=== PATIENT | male | born 1940 | race Caucasian/White ===

== ENCOUNTER 2016-10-08 18:01 | Inpatient (IN) | payer MEDICARE, OTHER ==
[~2016-10-08] VITALS: Ht 188 cm; Wt 91.9 kg
[2016-10-08] MEDS ORDERED: METHYLPRED SOD SUCC 125 MG/2 ML VIAL ONE (18:33)
[2016-10-08] MEDS ORDERED: DUONEB INH ONE ×3 (18:37)
[2016-10-08] MEDS ORDERED: CEFTRIAXONE 1 GM VIAL ONE (19:19)
[2016-10-08] MEDS ORDERED: AZITHROMYCIN 250 MG TAB ONE (19:19)
[2016-10-08] MEDS ORDERED: SODIUM CHLORIDE 0.9% 100 ML IV ONE (19:21)
[2016-10-08] MEDS ORDERED: NEB-ALBUTEROL 2.5 MG/3 ML INH PRN (20:10)
[2016-10-08] MEDS ORDERED: SALINE FLUSH 10 ML FLUSH PRN (20:20)
[2016-10-08] MEDS ORDERED: ACETAMINOPHEN 325 MG TAB PO PRN (20:20)
[2016-10-08] MEDS ORDERED: BISACODYL 10 MG SUPP RECTAL PRN (20:20)
[2016-10-08 21:59] VITALS: BP_SYST 120; BP_SYST 134; RESP 20; TEMP 98.2
[2016-10-08 22:00] VITALS: Ht 188 cm; Wt 91.9 kg
[2016-10-08] MEDS: MONTELUKAST 10 MG TAB PO SCH (23:22)
[2016-10-08] MEDS: GUAIFENESIN ER 600 MG TABCR PO SCH (23:23)
[2016-10-08] MEDS: Atorvastatin 10 MG TAB PO SCH (23:23)
[2016-10-08] MEDS: PHENYTOIN 100 MG CAP PO SCH (23:23)
[2016-10-08] MEDS: NICOTINE 14 MG/24 HR TDSY TRANSDERM SCH (23:23)
[2016-10-08] MEDS: DUONEB INH SCH (23:25)
[2016-10-08 23:28] VITALS: RESP 18
[2016-10-09] VITALS (9 sets, daily range): BP systolic 97–118; RESP 18–20; TEMP 97.2–98.7
[2016-10-09] MEDS: METHYLPRED SOD SUCC 40 MG VIAL IV SCH ×3 (01:22→17:36)
[2016-10-09] MEDS: NICOTINE 14 MG/24 HR TDSY TRANSDERM SCH ×2 (01:43→07:52)
[2016-10-09] MEDS: SODIUM CHLORIDE 0.9% FLUSH BAG 500 ML IV SCH (05:04)
[2016-10-09] MEDS: PANTOPRAZOLE 40 MG TAB PO SCH (06:22)
[2016-10-09] MEDS: LEVOTHYROXINE 0.15 MG TAB PO SCH (06:22)
[2016-10-09] MEDS: DUONEB INH SCH ×5 (07:36→23:13)
[2016-10-09] MEDS: ASPIRIN EC 81 MG TAB PO SCH (09:50)
[2016-10-09] MEDS: SALINE FLUSH 10 ML FLUSH SCH ×2 (09:50→20:00)
[2016-10-09] MEDS: CHOLECALCIFEROL 5,000 UNITS CAP PO SCH (09:51)
[2016-10-09] MEDS: SERTRALINE 100 MG TAB PO SCH (09:51)
[2016-10-09] MEDS: GUAIFENESIN ER 600 MG TABCR PO SCH ×2 (09:51→21:43)
[2016-10-09] MEDS: CEFTRIAXONE 1 GM in SODIUM CHLORIDE 0.9% 50 ML IV SCH (11:05)
[2016-10-09] MEDS: AZITHROMYCIN 500 MG in SODIUM CHLORIDE 0.9% 250 ML IV SCH (12:14)
[2016-10-09] MEDS: POTASSIUM CHLORIDE PREMIX 50 ML IV SCH ×2 (17:45→18:07)
[2016-10-09] MEDS ORDERED: KCL CR 20 MEQ TAB PO ONE (18:10)
[2016-10-09] MEDS ORDERED: MISSING DOSE XX ONE (18:10)
[2016-10-09] MEDS: BACITRACIN OINT TOPICAL SCH ×2 (18:49→21:44)
[2016-10-09] MEDS: Atorvastatin 10 MG TAB PO SCH (21:43)
[2016-10-09] MEDS: MONTELUKAST 10 MG TAB PO SCH (21:43)
[2016-10-09] MEDS: PHENYTOIN 100 MG CAP PO SCH (21:43)
[2016-10-10] MEDS: METHYLPRED SOD SUCC 40 MG VIAL IV SCH ×3 (00:29→17:45)
[2016-10-10] MEDS: SODIUM CHLORIDE 0.9% 1,000 ML IV SCH ×2 (01:05→06:27)
[2016-10-10 03:53] VITALS: BP_SYST 120; TEMP 97.6
[2016-10-10] MEDS: SODIUM CHLORIDE 0.9% FLUSH BAG 500 ML IV SCH (06:00)
[2016-10-10] MEDS: PANTOPRAZOLE 40 MG TAB PO SCH (06:26)
[2016-10-10] MEDS: LEVOTHYROXINE 0.15 MG TAB PO SCH (06:26)
[2016-10-10 07:42] VITALS: BP_SYST 129; RESP 18; TEMP 98.2
[2016-10-10] MEDS ORDERED: MISSING DOSE XX ONE (07:50)
[2016-10-10] MEDS: NICOTINE 14 MG/24 HR TDSY TRANSDERM SCH (08:36)
[2016-10-10] MEDS: AZITHROMYCIN 500 MG in SODIUM CHLORIDE 0.9% 250 ML IV SCH (09:22)
[2016-10-10] MEDS: CEFTRIAXONE 1 GM in SODIUM CHLORIDE 0.9% 50 ML IV SCH (09:22)
[2016-10-10] MEDS: SALINE FLUSH 10 ML FLUSH SCH ×2 (09:23→21:21)
[2016-10-10] MEDS: SERTRALINE 100 MG TAB PO SCH (09:24)
[2016-10-10] MEDS: ASPIRIN EC 81 MG TAB PO SCH (09:24)
[2016-10-10] MEDS: CHOLECALCIFEROL 5,000 UNITS CAP PO SCH (09:24)
[2016-10-10] MEDS: BACITRACIN OINT TOPICAL SCH ×4 (09:24→21:24)
[2016-10-10] MEDS: GUAIFENESIN ER 600 MG TABCR PO SCH ×2 (09:24→21:23)
[2016-10-10] MEDS: DUONEB INH SCH ×4 (10:56→22:51)
[2016-10-10] MEDS: SOD CHL NASAL SPR 45ML NARE EACH PRN (12:39)
[2016-10-10 12:51] VITALS: BP_SYST 111; RESP 18; TEMP 98.3
[2016-10-10 16:29] VITALS: BP_SYST 117; RESP 16; TEMP 97.9
[2016-10-10 20:20] VITALS: BP_SYST 126; RESP 18; TEMP 97.6
[2016-10-10] MEDS: Atorvastatin 10 MG TAB PO SCH (21:23)
[2016-10-10] MEDS: MONTELUKAST 10 MG TAB PO SCH (21:23)
[2016-10-10] MEDS: BISACODYL EC 5 MG TAB PO PRN (21:23)
[2016-10-10] MEDS: PHENYTOIN 100 MG CAP PO SCH (21:23)
[2016-10-10 23:23] VITALS: BP_SYST 122; RESP 20; TEMP 97.5
[2016-10-11] VITALS (7 sets, daily range): BP systolic 123–158; RESP 16–20; TEMP 97.3–98.5
[2016-10-11] MEDS: SODIUM CHLORIDE 0.9% FLUSH BAG 500 ML IV SCH (04:57)
[2016-10-11] MEDS: SODIUM CHLORIDE 0.9% 1,000 ML IV SCH (05:04)
[2016-10-11] MEDS: PANTOPRAZOLE 40 MG TAB PO SCH (06:39)
[2016-10-11] MEDS: LEVOTHYROXINE 0.15 MG TAB PO SCH (06:39)
[2016-10-11] MEDS: DUONEB INH SCH ×5 (07:52→22:16)
[2016-10-11] MEDS: SALINE FLUSH 10 ML FLUSH SCH ×2 (08:00→20:02)
[2016-10-11] MEDS: NICOTINE 14 MG/24 HR TDSY TRANSDERM SCH (09:00)
[2016-10-11] MEDS ORDERED: SOD CHL NASAL SPR 45ML NARE EACH PRN (10:05)
[2016-10-11] MEDS: BACITRACIN OINT TOPICAL SCH ×4 (10:12→20:03)
[2016-10-11] MEDS: CEFTRIAXONE 1 GM in SODIUM CHLORIDE 0.9% 50 ML IV SCH (10:12)
[2016-10-11] MEDS: GUAIFENESIN ER 600 MG TABCR PO SCH ×2 (10:13→20:02)
[2016-10-11] MEDS: ESCITALOPRAM 10 MG TAB PO SCH (10:14)
[2016-10-11] MEDS: ASPIRIN EC 81 MG TAB PO SCH (10:14)
[2016-10-11] MEDS: CHOLECALCIFEROL 5,000 UNITS CAP PO SCH (10:14)
[2016-10-11] MEDS: PREDNISONE 20 MG TAB PO SCH (10:14)
[2016-10-11] MEDS: AZITHROMYCIN 500 MG in SODIUM CHLORIDE 0.9% 250 ML IV SCH (10:45)
[2016-10-11] MEDS: Atorvastatin 10 MG TAB PO SCH (20:02)
[2016-10-11] MEDS: MONTELUKAST 10 MG TAB PO SCH (20:02)
[2016-10-11] MEDS: PHENYTOIN 100 MG CAP PO SCH (20:02)
[2016-10-12] MEDS ORDERED: MISSING DOSE XX ONE ×2 (02:45→09:45)
[2016-10-12 03:31] VITALS: BP_SYST 151; RESP 18; TEMP 98.7
[2016-10-12] MEDS: PANTOPRAZOLE 40 MG TAB PO SCH (05:44)
[2016-10-12] MEDS: LEVOTHYROXINE 0.15 MG TAB PO SCH (05:44)
[2016-10-12] MEDS: SODIUM CHLORIDE 0.9% FLUSH BAG 500 ML IV SCH ×2 (06:00→10:49)
[2016-10-12] MEDS: DUONEB INH SCH ×3 (06:32→19:10)
[2016-10-12 07:16] VITALS: BP_SYST 171; RESP 18; TEMP 98.5
[2016-10-12] MEDS: NICOTINE 14 MG/24 HR TDSY TRANSDERM SCH (09:00)
[2016-10-12] MEDS: SALINE FLUSH 10 ML FLUSH SCH ×2 (09:35→21:37)
[2016-10-12] MEDS: GUAIFENESIN ER 600 MG TABCR PO SCH ×2 (09:36→21:36)
[2016-10-12] MEDS: CHOLECALCIFEROL 5,000 UNITS CAP PO SCH (09:36)
[2016-10-12] MEDS: BACITRACIN OINT TOPICAL SCH ×4 (09:36→21:37)
[2016-10-12] MEDS: ESCITALOPRAM 10 MG TAB PO SCH (09:36)
[2016-10-12] MEDS: AZITHROMYCIN 250 MG TAB PO SCH (09:36)
[2016-10-12] MEDS: ASPIRIN EC 81 MG TAB PO SCH (09:36)
[2016-10-12] MEDS: PREDNISONE 20 MG TAB PO SCH (09:36)
[2016-10-12] MEDS: SOD CHL NASAL SPR 45ML NARE EACH PRN (09:39)
[2016-10-12] MEDS: CEFTRIAXONE 1 GM in SODIUM CHLORIDE 0.9% 50 ML IV SCH (10:49)
[2016-10-12] MEDS: amLODIPine 10 MG TAB PO SCH (10:51)
[2016-10-12 11:43] VITALS: BP_SYST 119; RESP 16; TEMP 97.8
[2016-10-12 15:08] VITALS: BP_SYST 123; RESP 16; TEMP 97.5
[2016-10-12] MEDS: MAG HYDROX 30 ML UDC PO PRN (16:52)
[2016-10-12 19:34] VITALS: BP_SYST 130; RESP 18; TEMP 97.8
[2016-10-12] MEDS: PHENYTOIN 100 MG CAP PO SCH (21:36)
[2016-10-12] MEDS: Atorvastatin 10 MG TAB PO SCH (21:36)
[2016-10-12] MEDS: MONTELUKAST 10 MG TAB PO SCH (21:36)
[2016-10-12 23:14] VITALS: BP_SYST 148; RESP 18; TEMP 97.8
[2016-10-13 05:03] VITALS: BP_SYST 127; RESP 18; TEMP 98.1
[2016-10-13] MEDS: PANTOPRAZOLE 40 MG TAB PO SCH (06:27)
[2016-10-13] MEDS: LEVOTHYROXINE 0.15 MG TAB PO SCH (06:27)
[2016-10-13 07:15] VITALS: BP_SYST 139; RESP 18; TEMP 97.9
[2016-10-13] MEDS: DUONEB INH SCH ×3 (07:47→19:46)
[2016-10-13] MEDS: MAG HYDROX 30 ML UDC PO PRN (08:24)
[2016-10-13] MEDS: SALINE FLUSH 10 ML FLUSH SCH ×2 (08:25→21:52)
[2016-10-13] MEDS: amLODIPine 10 MG TAB PO SCH (08:26)
[2016-10-13] MEDS: ESCITALOPRAM 10 MG TAB PO SCH (08:26)
[2016-10-13] MEDS: GUAIFENESIN ER 600 MG TABCR PO SCH ×2 (08:26→21:54)
[2016-10-13] MEDS: AZITHROMYCIN 250 MG TAB PO SCH (08:26)
[2016-10-13] MEDS: CHOLECALCIFEROL 5,000 UNITS CAP PO SCH (08:26)
[2016-10-13] MEDS: ASPIRIN EC 81 MG TAB PO SCH (08:26)
[2016-10-13] MEDS: BACITRACIN OINT TOPICAL SCH ×4 (08:27→21:54)
[2016-10-13] MEDS: NICOTINE 14 MG/24 HR TDSY TRANSDERM SCH (08:27)
[2016-10-13] MEDS: SOD CHL NASAL SPR 45ML NARE EACH PRN ×2 (08:27→21:55)
[2016-10-13 11:56] VITALS: BP_SYST 137; RESP 18; TEMP 98.4
[2016-10-13 17:03] VITALS: BP_SYST 130; RESP 18; TEMP 97.8
[2016-10-13] MEDS: Furosemide 20 MG TAB PO SCH (18:50)
[2016-10-13 19:25] VITALS: BP_SYST 110; RESP 18; TEMP 97.4
[2016-10-13] MEDS: Atorvastatin 10 MG TAB PO SCH (21:53)
[2016-10-13] MEDS: PHENYTOIN 100 MG CAP PO SCH (21:53)
[2016-10-13] MEDS: MONTELUKAST 10 MG TAB PO SCH (21:54)
[2016-10-13 22:57] VITALS: BP_SYST 139; RESP 18
[2016-10-14 03:48] VITALS: BP_SYST 125; RESP 16; TEMP 97.6
[2016-10-14] MEDS ORDERED: MISSING DOSE XX ONE (04:35)
[2016-10-14] MEDS: PANTOPRAZOLE 40 MG TAB PO SCH (05:36)
[2016-10-14] MEDS: LEVOTHYROXINE 0.15 MG TAB PO SCH (05:37)
[2016-10-14] MEDS: SODIUM CHLORIDE 0.9% FLUSH BAG 500 ML IV SCH (05:44)
[2016-10-14] MEDS: DUONEB INH SCH ×2 (06:53→12:12)
[2016-10-14] MEDS: BISACODYL EC 5 MG TAB PO PRN (06:55)
[2016-10-14 07:30] VITALS: BP_SYST 124; RESP 16; TEMP 97.9
[2016-10-14] MEDS: NICOTINE 14 MG/24 HR TDSY TRANSDERM SCH (09:00)
[2016-10-14] MEDS: amLODIPine 10 MG TAB PO SCH (09:42)
[2016-10-14] MEDS: CHOLECALCIFEROL 5,000 UNITS CAP PO SCH (09:42)
[2016-10-14] MEDS: AZITHROMYCIN 250 MG TAB PO SCH (09:42)
[2016-10-14] MEDS: SALINE FLUSH 10 ML FLUSH SCH (09:42)
[2016-10-14] MEDS: ASPIRIN EC 81 MG TAB PO SCH (09:43)
[2016-10-14] MEDS: GUAIFENESIN ER 600 MG TABCR PO SCH (09:43)
[2016-10-14] MEDS: ESCITALOPRAM 10 MG TAB PO SCH (09:43)
[2016-10-14] MEDS: BACITRACIN OINT TOPICAL SCH ×2 (09:48→13:05)
[2016-10-14] MEDS: Furosemide 20 MG TAB PO SCH (09:49)
[2016-10-14 11:41] VITALS: BP_SYST 111; RESP 16; TEMP 97.7
[2016-10-14 13:24] VITALS: BP_SYST 111; RESP 16; TEMP 97.7
[2016-10-14 13:27] VITALS: BP_SYST 111; RESP 16; TEMP 97.7
== END 2016-10-14 13:48 | disposition home health service (06) | DRG 190 ==
LOC: ENRESERVDT → ENRESERV → ENRESERVTM → ER 18:01 → EMR 20:08 → ENPENDDIS 20:08 → PCU2 21:20 → PCU 10-11 10:50 → 4THE 10-11 12:43 → 4NT 10-12 08:26
PROVIDERS: ADMIT Internal Medicine; ATTEND Internal Medicine
DX: J44.1 Chronic obstructive pulmonary disease with (acute) exacerbation (principal); J18.9 Pneumonia, unspecified organism; N17.9 Acute kidney failure, unspecified; I13.0 Hypertensive heart and chronic kidney disease with heart failure and stage 1 through stage 4 chronic kidney disease, or unspecified chronic kidney disease; J96.11 Chronic respiratory failure with hypoxia; Z99.81 Dependence on supplemental oxygen; I50.32 Chronic diastolic (congestive) heart failure; G40.909 Epilepsy, unspecified, not intractable, without status epilepticus; J44.0 Chronic obstructive pulmonary disease with (acute) lower respiratory infection; F17.210 Nicotine dependence, cigarettes, uncomplicated; E03.9 Hypothyroidism, unspecified; F32.9 Major depressive disorder, single episode, unspecified; G89.4 Chronic pain syndrome; G47.33 Obstructive sleep apnea (adult) (pediatric); E55.9 Vitamin D deficiency, unspecified; K21.9 Gastro-esophageal reflux disease without esophagitis; K44.9 Diaphragmatic hernia without obstruction or gangrene; I48.0 Paroxysmal atrial fibrillation; Z79.82 Long term (current) use of aspirin; T20.04XA Burn of unspecified degree of nose (septum), initial encounter; X08.8XXA Exposure to other specified smoke, fire and flames, initial encounter; W40.8XXA Explosion of other specified explosive materials, initial encounter; N18.3 Chronic kidney disease, stage 3 (moderate); E87.6 Hypokalemia
CPT/HCPCS: 36415; 71010; 80048; 80053; 82553; 82947; 83605; 83880; 84484; 85025; 87040; 87278; 87299; 87804; 93005; 94640; 94799; 96365; 96375; 99223; 99232; 99233

== ENCOUNTER 2016-10-15 09:15 | Inpatient (IN) | payer MEDICARE, OTHER ==
[~2016-10-15] VITALS: Ht 188 cm; Wt 106.6 kg
[2016-10-15] MEDS ORDERED: BISACODYL 10 MG SUPP RECTAL PRN (16:40)
[2016-10-15] MEDS ORDERED: SALINE FLUSH 10 ML FLUSH PRN (16:40)
[2016-10-15] MEDS ORDERED: NEB-ALBUTEROL 2.5 MG/3 ML INH PRN (16:40)
[2016-10-15] MEDS ORDERED: ACETAMINOPHEN 325 MG TAB PO PRN (16:40)
[2016-10-15] MEDS: NICOTINE 14 MG/24 HR TDSY TRANSDERM SCH ×2 (16:40→20:26)
[2016-10-15] MEDS ORDERED: BISACODYL EC 5 MG TAB PO PRN (16:40)
[2016-10-15 18:54] VITALS: BP_SYST 125; BP_SYST 158; RESP 18; TEMP 97.7
[2016-10-15 18:55] VITALS: Ht 188 cm; Wt 106.6 kg
[2016-10-15] MEDS: Atorvastatin 20 MG TAB PO SCH (20:27)
[2016-10-15] MEDS: ESCITALOPRAM 10 MG TAB PO SCH (20:27)
[2016-10-15] MEDS: Furosemide 40 MG TAB PO SCH (20:27)
[2016-10-15] MEDS: DOCUSATE SOD 100 MG CAP PO SCH (20:27)
[2016-10-15] MEDS: CHOLECALCIFEROL 5,000 UNITS CAP PO SCH (20:27)
[2016-10-15] MEDS: PHENYTOIN 100 MG CAP PO SCH (20:27)
[2016-10-15] MEDS: ASPIRIN EC 81 MG TAB PO SCH (20:27)
[2016-10-15] MEDS: POLYETHYLENE GLYCOL 17 GM PACKET PO SCH (20:28)
[2016-10-15] MEDS: SALINE FLUSH 10 ML FLUSH SCH (20:28)
[2016-10-15] MEDS: DUONEB INH SCH (21:15)
[2016-10-15 21:21] VITALS: RESP 16
[2016-10-15 23:36] VITALS: BP_SYST 119; RESP 18; TEMP 98.3
[2016-10-16 03:20] VITALS: BP_SYST 107; RESP 18; TEMP 97.9
[2016-10-16] MEDS: SODIUM CHLORIDE 0.9% FLUSH BAG 500 ML IV SCH (06:00)
[2016-10-16] MEDS ORDERED: MISSING DOSE XX ONE (06:30)
[2016-10-16] MEDS: PANTOPRAZOLE 40 MG TAB PO SCH (06:45)
[2016-10-16] MEDS: DUONEB INH SCH ×3 (06:50→18:28)
[2016-10-16 07:42] VITALS: BP_SYST 117; RESP 18; TEMP 97.9
[2016-10-16] MEDS: Furosemide 40 MG TAB PO SCH (08:10)
[2016-10-16] MEDS: ESCITALOPRAM 10 MG TAB PO SCH (08:10)
[2016-10-16] MEDS: ASPIRIN EC 81 MG TAB PO SCH (08:10)
[2016-10-16] MEDS: DOCUSATE SOD 100 MG CAP PO SCH ×2 (08:10→19:36)
[2016-10-16] MEDS: CHOLECALCIFEROL 5,000 UNITS CAP PO SCH (08:10)
[2016-10-16] MEDS: SALINE FLUSH 10 ML FLUSH SCH ×2 (08:11→19:37)
[2016-10-16] MEDS: NICOTINE 14 MG/24 HR TDSY TRANSDERM SCH (08:12)
[2016-10-16 12:15] VITALS: BP_SYST 114; RESP 18; TEMP 98.5
[2016-10-16 15:48] VITALS: BP_SYST 105; RESP 18; TEMP 98.8
[2016-10-16] MEDS: FLUTICASONE 0.05% NA BTL NARE EACH SCH (16:08)
[2016-10-16] MEDS: Atorvastatin 20 MG TAB PO SCH (19:35)
[2016-10-16] MEDS: POLYETHYLENE GLYCOL 17 GM PACKET PO SCH (19:36)
[2016-10-16] MEDS: PHENYTOIN 100 MG CAP PO SCH (19:36)
[2016-10-16 19:53] VITALS: BP_SYST 99; RESP 18; TEMP 97.7
[2016-10-16] MEDS ORDERED: FLUTICASONE 0.05% NA BTL NARE EACH SCH (21:00)
[2016-10-16 23:52] VITALS: BP_SYST 111; RESP 18; TEMP 98.5
[2016-10-17] MEDS: SODIUM CHLORIDE 0.9% FLUSH BAG 500 ML IV SCH (04:53)
[2016-10-17] MEDS: PANTOPRAZOLE 40 MG TAB PO SCH (06:13)
[2016-10-17] MEDS: DUONEB INH SCH ×3 (06:15→18:31)
[2016-10-17] MEDS: ESCITALOPRAM 10 MG TAB PO SCH (08:39)
[2016-10-17] MEDS: Furosemide 40 MG TAB PO SCH (08:39)
[2016-10-17] MEDS: CHOLECALCIFEROL 5,000 UNITS CAP PO SCH (08:40)
[2016-10-17] MEDS: ASPIRIN EC 81 MG TAB PO SCH (08:40)
[2016-10-17] MEDS: DOCUSATE SOD 100 MG CAP PO SCH ×2 (08:40→21:52)
[2016-10-17] MEDS: SALINE FLUSH 10 ML FLUSH SCH ×2 (08:41→21:53)
[2016-10-17] MEDS: NICOTINE 14 MG/24 HR TDSY TRANSDERM SCH (08:41)
[2016-10-17] MEDS: FLUTICASONE 0.05% NA BTL NARE EACH SCH (08:42)
[2016-10-17 08:48] VITALS: BP_SYST 141; RESP 18; TEMP 98.1
[2016-10-17 12:12] VITALS: BP_SYST 120; RESP 18; TEMP 98.4
[2016-10-17 16:05] VITALS: BP_SYST 98; RESP 18; TEMP 97.4
[2016-10-17] MEDS: MAG HYDROX 30 ML UDC PO PRN (16:30)
[2016-10-17 20:36] VITALS: BP_SYST 104; RESP 20; TEMP 97.8
[2016-10-17] MEDS: Atorvastatin 20 MG TAB PO SCH (21:51)
[2016-10-17] MEDS: PHENYTOIN 100 MG CAP PO SCH (21:51)
[2016-10-17] MEDS: POLYETHYLENE GLYCOL 17 GM PACKET PO SCH (21:51)
[2016-10-17 23:24] VITALS: BP_SYST 104; RESP 18; TEMP 98.4
[2016-10-18] VITALS (7 sets, daily range): BP systolic 103–140; RESP 16–18; TEMP 97.5–98.9
[2016-10-18] MEDS: SODIUM CHLORIDE 0.9% FLUSH BAG 500 ML IV SCH (04:19)
[2016-10-18] MEDS: PANTOPRAZOLE 40 MG TAB PO SCH (05:06)
[2016-10-18] MEDS: DUONEB INH SCH ×3 (07:02→18:38)
[2016-10-18] MEDS: NICOTINE 14 MG/24 HR TDSY TRANSDERM SCH (09:00)
[2016-10-18] MEDS: SALINE FLUSH 10 ML FLUSH SCH ×2 (09:30→21:45)
[2016-10-18] MEDS: CHOLECALCIFEROL 5,000 UNITS CAP PO SCH (09:31)
[2016-10-18] MEDS: Furosemide 40 MG TAB PO SCH (09:31)
[2016-10-18] MEDS: ESCITALOPRAM 10 MG TAB PO SCH (09:31)
[2016-10-18] MEDS: ASPIRIN EC 81 MG TAB PO SCH (09:31)
[2016-10-18] MEDS: DOCUSATE SOD 100 MG CAP PO SCH ×2 (09:31→21:46)
[2016-10-18] MEDS: FLUTICASONE 0.05% NA BTL NARE EACH SCH (09:32)
[2016-10-18] MEDS ORDERED: BISACODYL 10 MG SUPP RECTAL ONE (10:45)
[2016-10-18] MEDS: POLYETHYLENE GLYCOL 17 GM PACKET PO SCH ×2 (12:47→21:46)
[2016-10-18] MEDS: MAG HYDROX 30 ML UDC PO PRN (12:51)
[2016-10-18] MEDS ORDERED: BISACODYL EC 5 MG TAB PO ONE (20:30)
[2016-10-18] MEDS ORDERED: POLYETHYLENE GLYCOL 17 GM PACKET PO SCH (21:00)
[2016-10-18] MEDS: Atorvastatin 20 MG TAB PO SCH (21:46)
[2016-10-18] MEDS: PHENYTOIN 100 MG CAP PO SCH (21:46)
[2016-10-18] MEDS ORDERED: MISSING DOSE XX ONE (22:00)
[2016-10-19 03:45] VITALS: BP_SYST 148; RESP 16; TEMP 98.3
== END 2016-10-19 04:33 | DRG 948 ==
LOC: ENRESERVDT → ENRESERVTM → ER 09:15 → ENPENDDIS 16:50 → EMR 16:50 → 4THE 18:33
PROVIDERS: ADMIT Hospitalist; ATTEND Hospitalist
DX: R53.1 Weakness (principal); J96.11 Chronic respiratory failure with hypoxia; Z99.81 Dependence on supplemental oxygen; J44.9 Chronic obstructive pulmonary disease, unspecified; I48.0 Paroxysmal atrial fibrillation; I11.0 Hypertensive heart disease with heart failure; I50.32 Chronic diastolic (congestive) heart failure; G40.909 Epilepsy, unspecified, not intractable, without status epilepticus; F32.9 Major depressive disorder, single episode, unspecified; E55.9 Vitamin D deficiency, unspecified; Z79.82 Long term (current) use of aspirin; F17.210 Nicotine dependence, cigarettes, uncomplicated; K21.9 Gastro-esophageal reflux disease without esophagitis; G47.33 Obstructive sleep apnea (adult) (pediatric); E03.9 Hypothyroidism, unspecified; N40.0 Benign prostatic hyperplasia without lower urinary tract symptoms; K59.09 Other constipation; Z71.6 Tobacco abuse counseling; G89.4 Chronic pain syndrome
CPT/HCPCS: 36415; 74022; 80048; 80053; 81003; 82550; 82553; 83880; 84484; 85025; 93005; 94640; 94799; 99223; 99232; 99233; 99238